=== PATIENT | female | born 1940 | race Caucasian/White ===

== ENCOUNTER 2017-05-12 17:55 | Emergency (ER) | payer MEDICARE ==
[~2017-05-12] VITALS: Ht 154.9 cm; Wt 49.9 kg
[~2017-05-12 17:55] MED LIST: ALBU2.5V14 IH; ALEN70TA5 PO; CITA10SO PO; FLEXER; FLUT16SP NS; HYDR1TAB20 PO; LEVO750T31 PO; LOSA1TAB17 PO; MESA1POW MC; POLYETHYLENE GLYCOL; POTA10TA PO; PRED20TA PO; PRO AIR; TEMA30CA PO; TIOT18CA IH; TRAM50TA PO; [UNRECOGNIZED DRUG - OTHER]; [UNRECOGNIZED DRUG - OTHER]
[2017-05-12 19:13] LABS: BASO % 1 % (0-3); EOS % 1 % (0-3); HEMATOCRIT 43.3 % (36.0-47.0); HEMOGLOBIN 14.5 g/dL (12.0-15.5); LYMPH # 0.5 x10^3/uL (1.0-4.8); LYMPH % 9 % (24-48); MEAN CORPUSCULAR HEMOGLOBIN 29 pg (25-35); MEAN CORPUSCULAR HGB CONC 34 g/dL (31-37); MEAN CORPUSCULAR VOLUME 87 fL (79-100); MONO % 3 % (0-9); NEUT % 87 % (31-73); PLATELET COUNT 277 x10^3/uL (140-400); RED CELL DISTRIBUTION WIDTH 13.4 % (11.5-14.5)
[2017-05-12 19:24] LABS: CALCIUM 9.5 mg/dL (8.5-10.1); CREATININE 0.8 mg/dL (0.6-1.0); GFR 69.6; POTASSIUM 3.8 mmol/L (3.5-5.1)
[2017-05-12 19:30] LABS: ALBUMIN 3.8 g/dL (3.4-5.0); DIRECT BILIRUBIN 0.1 mg/dL (0.0-0.2); TOTAL BILIRUBIN 0.3 mg/dL (0.2-1.0); TOTAL PROTEIN 7.1 g/dL (6.4-8.2)
[2017-05-12 19:33] VITALS: BP 158/75
[2017-05-12 19:35] LABS: BILIRUBIN,URINE NEGATIVE (NEG); GLUCOSE,URINE NEGATIVE (NEG); NITRITE,URINE NEGATIVE (NEG); PH,URINE 7.5; PROTEIN,URINE NEGATIVE (NEG-TRACE); UROBILINOGEN,URINE 0.2 mg/dL (0.2 mg/dL)
[2017-05-12 19:49] LABS: BACTERIA,URINE 0 /HPF (0-FEW)
--- NOTE | 2017-05-12 20:06 | PHYS DOC ---
Past Medical History Past Medical History: Arthritis, Cancer, COPD, Diverticulosis, GERD, Hypertension, Other Additional Past Medical Histor: Lung CA - remission, VERTIGO, DRY MOUTH Past Surgical History: Appendectomy, Cholecystectomy, Colectomy, Hysterectomy, Oophorectomy Additional Past Surgical Histo: BX OOPH. Alcohol Use: None Drug Use: None Adult General Chief Complaint Chief Complaint: HYPERTENSION HPI HPI 77-year-old female presenting to the emergency department today with a headache and high blood pressure. She describes her headache is intermittent sharp nonradiating without alleviating factors. Review of systems is negative for chest pain abdominal pain oliguria wheezing or difficulty breathing. She denies vision changes. All other review of systems is negative unless otherwise noted in history of present illness. ED course: 77-year-old female presenting today with hypertension and a mild headache. Vital signs showed mild hypertension and 170 systolic. Otherwise the patient denied any evidence of end organ damage. Blood work and EKG obtained which was unremarkable. EKG shows sinus rhythm with a regular rate. ST segments show mild repolarization. Does not meet STEMI criteria. EKG states to consider WPW. I do not believe this patient at WPW. I do not believe that lead 2 has a delta wave. Suggestive of ACS. Reviewed by myself. Otherwise the patient's workup was unremarkable and the patient was subsequently discharged home to follow-up with her primary care physician for chronic hypertension control. Review of Systems Review of Systems SEE ABOVE. Allergies Allergies Allergies Coded Allergies Type Severity Reaction Last Updated Verified tramadol Allergy Unknown 05/12/17 No codeine Adverse Reaction Intermediate Nausea 05/12/17 Yes Physical Exam Physical Exam SEE ABOVE Constitutional: Well developed, well nourished, no acute distress, non-toxic appearance. [] HENT: Normocephalic, atraumatic, bilateral external ears normal, oropharynx moist, no oral exudates, nose normal. [] Eyes: PERRLA, EOMI, conjunctiva normal, no discharge. [] Neck: Normal range of motion, no tenderness, supple, no stridor. [] Cardiovascular:Heart rate regular rhythm, no murmur [] Lungs & Thorax: Bilateral breath sounds clear to auscultation [] Abdomen: Bowel sounds normal, soft, no tenderness, no masses, no pulsatile masses. [] Skin: Warm, dry, no erythema, no rash. [] Back: No tenderness, no CVA tenderness. [] Extremities: No tenderness, no cyanosis, no clubbing, ROM intact, no edema. [] Neurologic: Alert and oriented X 3, normal motor function, normal sensory function, no focal deficits noted. [] Psychologic: Affect normal, judgement normal, mood normal. [] Current Patient Data Vital Signs Vital Signs Date Time Temp Pulse Resp B/P (MAP) Pulse Ox O2 Delivery O2 Flow Rate FiO2 05/12/17 18:05 98.0 103 20 178/82 (114) 96 Room Air 98.0 Lab Values Laboratory Tests Test 05/12/17 18:55 05/12/17 19:25 White Blood Count 5.0 x10^3/uL (4.0-11.0) Red Blood Count 5.00 x10^6/uL (3.50-5.40) Hemoglobin 14.5 g/dL (12.0-15.5) Hematocrit 43.3 % (36.0-47.0) Mean Corpuscular Volume 87 fL (79-100) Mean Corpuscular Hemoglobin 29 pg (25-35) Mean Corpuscular Hemoglobin Concent 34 g/dL (31-37) Red Cell Distribution Width 13.4 % (11.5-14.5) Platelet Count 277 x10^3/uL (140-400) Neutrophils (%) (Auto) 87 % (31-73) H Lymphocytes (%) (Auto) 9 % (24-48) L Monocytes (%) (Auto) 3 % (0-9) Eosinophils (%) (Auto) 1 % (0-3) Basophils (%) (Auto) 1 % (0-3) Neutrophils # (Auto) 4.4 x10^3uL (1.8-7.7) Lymphocytes # (Auto) 0.5 x10^3/uL (1.0-4.8) L Monocytes # (Auto) 0.1 x10^3/uL (0.0-1.1) Eosinophils # (Auto) 0.1 x10^3/uL (0.0-0.7) Basophils # (Auto) 0.0 x10^3/uL (0.0-0.2) Platelet Estimate Pending Sodium Level 141 mmol/L (136-145) Potassium Level 3.8 mmol/L (3.5-5.1) Chloride Level 102 mmol/L (98-107) Carbon Dioxide Level 30 mmol/L (21-32) Anion Gap 9 (6-14) Blood Urea Nitrogen 12 mg/dL (7-20) Creatinine 0.8 mg/dL (0.6-1.0) Estimated GFR (Cockcroft-Gault) 69.6 Glucose Level 108 mg/dL (70-99) H Calcium Level 9.5 mg/dL (8.5-10.1) Total Bilirubin 0.3 mg/dL (0.2-1.0) Direct Bilirubin 0.1 mg/dL (0.0-0.2) Aspartate Amino Transferase (AST) 17 U/L (15-37) Alanine Aminotransferase (ALT) 20 U/L (14-59) Alkaline Phosphatase 66 U/L (46-116) Troponin I Quantitative < 0.017 ng/mL (0.000-0.055) KA-Rvt-D-Type Natriuretic Peptide 1476 pg/mL (0-449) H Total Protein 7.1 g/dL (6.4-8.2) Albumin 3.8 g/dL (3.4-5.0) Lipase 182 U/L (73-393) Urine Collection Type Unknown Urine Color Yellow Urine Clarity Clear Urine pH 7.5 Urine Specific [place] <=1.005 Urine Protein Negative mg/dL (NEG-TRACE) Urine Glucose (UA) Negative mg/dL (NEG) Urine Ketones (Stick) Negative mg/dL (NEG) Urine Blood Negative (NEG) Urine Nitrite Negative (NEG) Urine Bilirubin Negative (NEG) Urine Urobilinogen Dipstick 0.2 mg/dL (0.2 mg/dL) Urine Leukocyte Esterase Small (NEG) Urine RBC 3-5 /HPF (0-2) Urine WBC 5-10 /HPF (0-4) Urine Transitional Epithelial Cells Few /LPF Urine Bacteria 0 /HPF (0-FEW) Laboratory Tests 05/12/17 18:55 Laboratory Tests 05/12/17 18:55 EKG EKG [] Radiology/Procedures Radiology/Procedures [] Course & Med Decision Making Course & Med Decision Making Pertinent Labs and Imaging studies reviewed. (See chart for details) [] Dragon Disclaimer Dragon Disclaimer This electronic medical record was generated, in whole or in part, using a voice recognition dictation system. Departure Departure Impression: Primary Impression: Hypertension Disposition: HOME, SELF-CARE Condition: STABLE Referrals: GENNA العلي MD (PCP) Patient Instructions: Hypertension Additional Instructions: Thank you for allowing us to participate in your care today. Followup with your primary care physician in 3 days if your symptoms do not improve. Call your Primary Doctor tomorrow and inform them of your visit today. If you do not have a primary care provider you can ask for a list of our primary care providers. Return to the emergency department you have any new or concerning findings. This should be evaluated by the primary care physician and any necessary consulting services for continued management within a few days after discharge. Return to emergency room if you have any new or concerning symptoms including but not limited to fever, chills, nausea, vomiting, intractable pain, any new rashes, chest pain, shortness of air, uncontrolled bleeding, difficulty breathing, and/or vision loss. IKE BRADLEY MD May 12, 2017 20:06
[2017-05-12 20:08] LABS: PLT ESTIMATE ADEQUATE (ADEQUATE)
--- NOTE | 2017-05-12 20:09 | EKG ---
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
== END 2017-05-12 20:15 | disposition home or self-care (01) ==
LOC: ER 17:55
DX: I10 Essential (primary) hypertension (principal); M19.90 Unspecified osteoarthritis, unspecified site; J44.9 Chronic obstructive pulmonary disease, unspecified; K21.9 Gastro-esophageal reflux disease without esophagitis; Z90.49 Acquired absence of other specified parts of digestive tract; Z90.710 Acquired absence of both cervix and uterus; Z88.5 Allergy status to narcotic agent; Z90.721 Acquired absence of ovaries, unilateral
CPT/HCPCS: 36415; 80048; 80076; 81001; 83605; 83690; 83880; 84484; 85007; 85027; 87086; 93005; 99285-25

== ENCOUNTER 2018-12-07 00:30 | Inpatient (IN) | payer MEDICARE ==
[2018-12-07] VITALS (13 sets, daily range): BP systolic 113–135; BP diastolic 51–59
[~2018-12-07] VITALS: Ht 154.9 cm; Wt 52.2 kg
[~2018-12-07 00:30] MED LIST changes: -ALEN70TA5 PO; +ALEN70TA6 PO; -LOSA1TAB17 PO; +LOSA1TAB22 PO
--- NOTE | 2018-12-07 00:44 | PHYS DOC ---
Past Medical History Past Medical History: Arthritis, Cancer, COPD, Diverticulosis, GERD, Hypertension, Other Additional Past Medical Histor: Lung CA - remission, VERTIGO, DRY MOUTH Past Surgical History: Appendectomy, Cholecystectomy, Colectomy, Hysterectomy, Oophorectomy Additional Past Surgical Histo: BX OOPH. Alcohol Use: None Drug Use: None Adult General Chief Complaint Chief Complaint: MECHANICAL FALL HPI HPI Patient is a 78-year-old female who arrives via EMS with report of injury to her left shoulder and left hip after falling at home. Patient reportedly had tripped over a trunk when the lights were turned out and she fell onto her left side. She rates her pain at a 9 out of 10 stating that the worst of the pain is in her left hip. EMS reports she was able to get herself up onto a chair at was not able to bear weight on that left hip. Patient reports pain is worsened in the hip with any motion. She denies any head injury, neck pain and back pain and had no loss of consciousness. Review of Systems Review of Systems Constitutional: Denies fever or chills [] Eyes: Denies change in visual acuity, redness, or eye pain [] Respiratory: Denies cough or shortness of breath [] Cardiovascular: No additional information not addressed in HPI [] GI: Denies abdominal pain, nausea, vomiting or diarrhea [] Musculoskeletal: Complains of left shoulder and hip pain [] Neurologic: Denies headache, focal weakness or sensory changes [] All other systems were reviewed and found to be within normal limits, except as documented in this note. Current Medications Current Medications Current Medications Medications (Trade) Dose Ordered [facility] Start Time Stop Time Status Last Admin Dose Admin Fentanyl Citrate (Fentanyl 2ml Vial) 25 mcg PRN Q15MIN PRN 12/07/18 00:45 12/08/18 00:44 12/07/18 01:05 25 MCG Hydromorphone HCl (Dilaudid) 0.5 mg 1X ONCE 12/07/18 02:45 12/07/18 02:47 DC 12/07/18 02:50 0.5 MG Sodium Chloride 1,000 ml @ 100 mls/hr Q10H 12/07/18 00:45 12/07/18 10:44 12/07/18 01:06 100 MLS/HR Allergies Allergies Allergies Coded Allergies Type Severity Reaction Last Updated Verified tramadol Allergy Unknown 05/12/17 No codeine Adverse Reaction Intermediate Nausea 05/12/17 Yes Physical Exam Physical Exam Constitutional: Well developed, well nourished, no acute distress, non-toxic appearance. [] HENT: Normocephalic, atraumatic, bilateral external ears normal, oropharynx moist, no oral exudates, nose normal. [] Eyes: PERRLA, EOMI, conjunctiva normal, no discharge. [] Neck: Normal range of motion, no tenderness, supple, no stridor. [] Cardiovascular: Regular rate and rhythm[] Lungs & Thorax: Bilateral breath sounds clear to auscultation [] Abdomen: Bowel sounds normal, soft, no tenderness. [] Skin: Warm, dry, no erythema, no rash. [] Extremities: Examination of left hip demonstrates no shortening or external rotation. Patient does report significant pain with minimal external rotation of hip. Examination of left shoulder demonstrates no obvious deformity. Patient does report to increase pain in the shoulder with flexion and with abduction. [ ] Neurologic: Alert and oriented X 3, no focal deficits noted. [] Current Patient Data Vital Signs Vital Signs Date Time Temp Pulse Resp B/P (MAP) Pulse Ox O2 Delivery O2 Flow Rate FiO2 12/07/18 02:50 18 93 Room Air 12/07/18 01:26 102 12/07/18 00:30 97.7 145/69 (94) 97.7 Lab Values Laboratory Tests Test 12/07/18 00:58 12/07/18 01:43 White Blood Count 5.4 x10^3/uL (4.0-11.0) Red Blood Count 4.58 x10^6/uL (3.50-5.40) Hemoglobin 13.5 g/dL (12.0-15.5) Hematocrit 40.8 % (36.0-47.0) Mean Corpuscular Volume 89 fL (79-100) Mean Corpuscular Hemoglobin 30 pg (25-35) Mean Corpuscular Hemoglobin Concent 33 g/dL (31-37) Red Cell Distribution Width 13.5 % (11.5-14.5) Platelet Count 295 x10^3/uL (140-400) Neutrophils (%) (Auto) 72 % (31-73) Lymphocytes (%) (Auto) 16 % (24-48) L Monocytes (%) (Auto) 10 % (0-9) H Eosinophils (%) (Auto) 2 % (0-3) Basophils (%) (Auto) 1 % (0-3) Neutrophils # (Auto) 3.9 x10^3uL (1.8-7.7) Lymphocytes # (Auto) 0.8 x10^3/uL (1.0-4.8) L Monocytes # (Auto) 0.5 x10^3/uL (0.0-1.1) Eosinophils # (Auto) 0.1 x10^3/uL (0.0-0.7) Basophils # (Auto) 0.0 x10^3/uL (0.0-0.2) Prothrombin Time 11.9 SEC (11.7-14.0) Prothrombin Time INR 0.9 (0.8-1.1) Sodium Level 142 mmol/L (136-145) Potassium Level 3.5 mmol/L (3.5-5.1) Chloride Level 103 mmol/L (98-107) Carbon Dioxide Level 29 mmol/L (21-32) Anion Gap 10 (6-14) Blood Urea Nitrogen 23 mg/dL (7-20) H Creatinine 0.7 mg/dL (0.6-1.0) Estimated GFR (Cockcroft-Gault) 80.9 BUN/Creatinine Ratio 33 (6-20) H Glucose Level 104 mg/dL (70-99) H Calcium Level 9.5 mg/dL (8.5-10.1) Total Bilirubin 0.2 mg/dL (0.2-1.0) Aspartate Amino Transferase (AST) 19 U/L (15-37) Alanine Aminotransferase (ALT) 23 U/L (14-59) Alkaline Phosphatase 69 U/L (46-116) Total Protein 6.6 g/dL (6.4-8.2) Albumin 3.4 g/dL (3.4-5.0) Albumin/Globulin Ratio 1.1 (1.0-1.7) Urine Collection Type U cath Urine Color Yellow Urine Clarity Clear Urine pH 5.5 Urine Specific [place] 1.025 Urine Protein Negative mg/dL (NEG-TRACE) Urine Glucose (UA) Negative mg/dL (NEG) Urine Ketones (Stick) Negative mg/dL (NEG) Urine Blood Negative (NEG) Urine Nitrite Negative (NEG) Urine Bilirubin Negative (NEG) Urine Urobilinogen Dipstick 0.2 mg/dL (0.2 mg/dL) Urine Leukocyte Esterase Negative (NEG) Urine RBC 1-2 /HPF (0-2) Urine WBC Occ /HPF (0-4) Urine Squamous Epithelial Cells Occ /LPF Urine Bacteria 0 /HPF (0-FEW) Urine Hyaline Casts Few /HPF Urine Mucus Mod /LPF Laboratory Tests 12/07/18 00:58 Laboratory Tests 12/07/18 00:58 EKG EKG [] Radiology/Procedures Radiology/Procedures [] Impressions: PROCEDURE: CT PELVIS WO CONTRAST EXAM: CT pelvis with IV contrast DATE: 12/07/2018 2:24 AM COMPARISON: No prior INDICATION: eval for left hip fx left hip pain TECHNIQUE: CT of the pelvis was performed without IV contrast. Axial coronal and sagittal reformatted images were generated. PQRS compliance statement - One or more of the following individualized dose reduction techniques were utilized for this study: 1. Automated exposure control 2. Adjustment of the mA and/or kV according to patient size 3. Use of iterative reconstruction technique FINDINGS: There is an acute, complete subcapital left femoral neck fracture, mildly impacted. No significant displacement. Diffusely decreased bone mineral density. Lower lumbar spine degenerative changes are seen. Symphysis pubis degenerative changes are seen. Atherosclerotic vascular calcifications are seen. Large volume colonic stool content is seen. Suture line is seen within the distal sigmoid/rectum. Diffuse subcutaneous soft tissue swelling is seen overlying the dorsal/lateral aspect of the left hip, likely subcutaneous hematoma. IMPRESSION: 1. Acute, subcapital left femoral neck fracture, mildly impacted, without significant displacement. 2. Diffusely decreased bone mineral density. 3. Subcutaneous soft tissue swelling overlying the dorsal/lateral aspect of the left hip, likely soft tissue hematoma. Electronically signed by: Marcial Fuentes MD (12/07/2018 3:35 AM) [facility] Course & Med Decision Making Course & Med Decision Making Pertinent Labs and Imaging studies reviewed. (See chart for details) [] Dragon Disclaimer Dragon Disclaimer This electronic medical record was generated, in whole or in part, using a voice recognition dictation system. Departure Departure Impression: Primary Impression: Subcapital fracture of left femur Disposition: 09 ADMITTED INPATIENT Admitting Physician: Sanchez Kolb Condition: IMPROVED Referrals: SANCHEZ KOLB MD (PCP) Problem Qualifiers Primary Impression: Subcapital fracture of left femur Encounter type: initial encounter Fracture type: closed Qualified Codes: S72.012A - Unspecified intracapsular fracture of left femur, initial encounter for closed fracture SIMON CALDERON Jr. DO Dec 07, 2018 00:44
[2018-12-07] MEDS ORDERED: IV NORMAL SALINE 1000ML BAG 1,000 ML IV SCH (00:45)
[2018-12-07] MEDS ORDERED: fentaNYL PF VIAL 100 MCG/2 ML VIAL IV PRN ×3 (00:45→09:30)
[2018-12-07 01:19] LABS: BASO % 1 % (0-3); EOS # 0.1 x10^3/uL (0.0-0.7); EOS % 2 % (0-3); HEMATOCRIT 40.8 % (36.0-47.0); HEMOGLOBIN 13.5 g/dL (12.0-15.5); LYMPH # 0.8 x10^3/uL (1.0-4.8); LYMPH % 16 % (24-48); MEAN CORPUSCULAR HEMOGLOBIN 30 pg (25-35); MEAN CORPUSCULAR HGB CONC 33 g/dL (31-37); MEAN CORPUSCULAR VOLUME 89 fL (79-100); MONO # 0.5 x10^3/uL (0.0-1.1); MONO % 10 % (0-9); NEUT # 3.9 x10^3uL (1.8-7.7); NEUT % 72 % (31-73); PLATELET COUNT 295 x10^3/uL (140-400); RED BLOOD COUNT 4.58 x10^6/uL (3.50-5.40); RED CELL DISTRIBUTION WIDTH 13.5 % (11.5-14.5); WHITE BLOOD COUNT 5.4 x10^3/uL (4.0-11.0)
[2018-12-07 01:23] LABS: CALCIUM 9.5 mg/dL (8.5-10.1); CREATININE 0.7 mg/dL (0.6-1.0); GFR 80.9; POTASSIUM 3.5 mmol/L (3.5-5.1)
[2018-12-07 01:26] LABS: PROTHROMBIN TIME PATIENT 11.9 SEC (11.7-14.0)
[2018-12-07 01:29] LABS: ALBUMIN 3.4 g/dL (3.4-5.0); ALBUMIN/GLOBULIN RATIO 1.1 (1.0-1.7); TOTAL BILIRUBIN 0.2 mg/dL (0.2-1.0); TOTAL PROTEIN 6.6 g/dL (6.4-8.2)
[2018-12-07 01:52] LABS: BILIRUBIN,URINE NEGATIVE (NEG); CLARITY,URINE CLEAR; COLOR,URINE YELLOW; NITRITE,URINE NEGATIVE (NEG); PH,URINE 5.5; PROTEIN,URINE NEGATIVE (NEG-TRACE); UROBILINOGEN,URINE 0.2 mg/dL (0.2 mg/dL)
--- NOTE | 2018-12-07 01:56 | RAD ---
EXAM: AP pelvis, AP and frog-leg lateral views of the left hip DATE: 12/07/2018 1:12 AM INDICATION: pt fell; hip pain COMPARISON: No Prior FINDINGS/ IMPRESSION: 1. There is mild cortical offset at the left femoral head/neck junction suspicious for subcapital left femoral neck fracture. However evaluation is limited given diffuse osteopenia and can be confirmed by cross-sectional imaging CT/MRI. 2. Lower lumbar spine and SI joint degenerative changes are seen. Electronically signed by: Marcial Fuentes MD (12/07/2018 1:53 AM) [facility]
[2018-12-07 01:59] LABS: BACTERIA,URINE 0 /HPF (0-FEW); HYALINE CASTS, URINE FEW /HPF; SQUAMOUS EPITHELIAL CELL,UR OCC /LPF; WBC,URINE OCC /HPF (0-4)
[2018-12-07] MEDS ORDERED: HYDROmorphone 2 MG/ML VIAL IV ONE (02:45)
--- NOTE | 2018-12-07 03:38 | RAD ---
EXAM: CT pelvis with IV contrast DATE: 12/07/2018 2:24 AM COMPARISON: No prior INDICATION: eval for left hip fx left hip pain TECHNIQUE: CT of the pelvis was performed without IV contrast. Axial coronal and sagittal reformatted images were generated. PQRS compliance statement - One or more of the following individualized dose reduction techniques were utilized for this study: 1. Automated exposure control 2. Adjustment of the mA and/or kV according to patient size 3. Use of iterative reconstruction technique FINDINGS: There is an acute, complete subcapital left femoral neck fracture, mildly impacted. No significant displacement. Diffusely decreased bone mineral density. Lower lumbar spine degenerative changes are seen. Symphysis pubis degenerative changes are seen. Atherosclerotic vascular calcifications are seen. Large volume colonic stool content is seen. Suture line is seen within the distal sigmoid/rectum. Diffuse subcutaneous soft tissue swelling is seen overlying the dorsal/lateral aspect of the left hip, likely subcutaneous hematoma. IMPRESSION: 1. Acute, subcapital left femoral neck fracture, mildly impacted, without significant displacement. 2. Diffusely decreased bone mineral density. 3. Subcutaneous soft tissue swelling overlying the dorsal/lateral aspect of the left hip, likely soft tissue hematoma. Electronically signed by: Marcial Fuentes MD (12/07/2018 3:35 AM) [facility]
[2018-12-07] MEDS ORDERED: ONDANSETRON PF 4 MG/2 ML VIAL. IV PRN ×3 (04:00→19:00)
[2018-12-07] MEDS: fentaNYL PF VIAL 100 MCG/2 ML VIAL IV PRN ×6 (04:41→17:18)
--- NOTE | 2018-12-07 05:15 | NUR ---
ADMIT Pt arrived via [facility] accompanied by grand-daughter Mary. Patient moved from [facility] to bed via slide transfer by [facility] staff. Pt A/Ox4, NC 2L O2, VSS. Full admission assessment completed at this time. Pt c/o of most pain in left hip, 04/19. Patient grasping Left shoulder and facial grimacing. Ice pack applied to Left hip. IVF initiated at this time. Purewick suction set up at this time. MRSA swab completed. SCD applied to right lower leg. Granddgtr at bedside. Advised RN will call Lawanda and then will determine surgery. Advised NPO, call contract signed. Allergy arm band applied. Fall precautions initiated. Alarm activated, will continue to monitor closely .
[2018-12-07] MEDS: IV NORMAL SALINE 1000ML BAG 1,000 ML IV SCH ×3 (06:01→21:42)
--- NOTE | 2018-12-07 07:28 | NUR ---
Routine consult called to Dr. Webber's office regarding Left Femoral Neck Fracture and Left Shoulder pain.
--- NOTE | 2018-12-07 08:08 | RAD ---
PORTABLE CHEST 1V History: chest pain after fall Comparison: September 13, 2016 Findings: AP view of the chest is submitted. There is atherosclerotic calcification thoracic aorta. There is old right posterior seventh rib fracture. There is no infiltrate, pleural fluid, pneumothorax. Heart size is stable. Impression: 1. No acute radiographic abnormality is identified. Electronically signed by: Julian Graham MD (12/07/2018 8:05 AM) [facility]
--- NOTE | 2018-12-07 08:15 | RAD ---
SHOULDER 2+V LEFT History: shoulder pain after fall Comparison: None. Findings: 3 views of the left shoulder are submitted. No acute fracture or dislocation is identified by radiographs. Impression: 1. No acute osseous abnormality is identified by radiographs. Electronically signed by: Julian Graham MD (12/07/2018 8:13 AM) [facility]
--- NOTE | 2018-12-07 08:56 | PDOC ---
Provider Note Provider Note [id number] GENNA العلي MD Dec 07, 2018 08:56
[2018-12-07] MEDS: LOSARTAN POTASSIUM 50 MG TABLET. PO SCH (09:00)
[2018-12-07] MEDS: MESALAMINE MC SCH ×3 (09:00→21:00)
[2018-12-07] MEDS ORDERED: hydroCHLOROthiazide 25 MG TABLET PO SCH (09:00)
[2018-12-07] MEDS: POLYETHYLENE GLYCOL 3350 17 GM PACKET. PO SCH (09:00)
[2018-12-07] MEDS ORDERED: IV RINGERS,LACTATED 1000ML 1,000 ML IV SCH (09:29)
[2018-12-07] MEDS ORDERED: PROCHLORPERAZINE 10 MG/2 ML VIAL. IV PRN (09:30)
[2018-12-07] MEDS ORDERED: LIDOCAINE 1% PF 2 ML VIAL. ID PRN (09:30)
--- NOTE | 2018-12-07 09:34 | HP ---
ADMIT DATE: 12/07/2018 CHIEF COMPLAINT: Fall. HISTORY OF PRESENT ILLNESS: A 78-year-old white female with mild hypertension, COPD, and osteoporosis. Had a fall and suffered a femoral neck fracture. The orthopedist has seen her and plans to do surgery later today and there have been no recent medical problems. MEDICATIONS: Noted per the chart. ALLERGIES: SHE HAS ALLERGIES TO CODEINE AND TRAMADOL. No prior significant orthopedic problems. SOCIAL HISTORY: Nonsmoker for many years, , nondrinker. FAMILY HISTORY: Unremarkable. REVIEW OF SYSTEMS: No other recent problems. OBJECTIVE: ENT: All within normal limits. NECK: No masses, nodes or bruits. LUNGS: Clear, without tachypnea. CARDIOVASCULAR: Regular rate. No irregular beat or murmur. ABDOMEN: Soft, benign and nontender. EXTREMITIES: The left leg is shortened and externally rotated consistent with a fracture. Distal pulses are reasonably good, radial pulses good 2+ clubbing is noted. NEUROLOGIC: Physiologic. ASSESSMENT: Hip fracture, chronic obstructive pulmonary disease, hypertension, and osteoporosis. The patient is medically stable for surgery. GENNA العلي MD DR: KURT/corrina JOB#: [id number] / [id number]
[2018-12-07] MEDS: IPRATRPIUM/ALBUTEROL 0.5/2.5MG 3 ML NEBU. NEB SCH ×3 (10:47→20:45)
--- NOTE | 2018-12-07 11:14 | NUR ---
SW following, discussed with RN. Pt is from home with granddaughter, and is having surgery today. RN advised no SW needs at this time. SW will continue to follow.
--- NOTE | 2018-12-07 11:31 | EKG ---
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
[2018-12-07] MEDS ORDERED: fentaNYL PF VIAL 100 MCG/2 ML VIAL ONE (15:09)
[2018-12-07] MEDS ORDERED: ONDANSETRON PF 4 MG/2 ML VIAL. ONE (15:13)
[2018-12-07] MEDS ORDERED: DEXAMETHASONE SOD PHOS 20 MG/5 ML VIAL. ONE (15:13)
[2018-12-07] MEDS ORDERED: LIDOCAINE 2% PF 5 ML VIAL. ONE (15:13)
[2018-12-07] MEDS ORDERED: PROPOFOL 20 ML IV ONE (15:13)
[2018-12-07] MEDS ORDERED: WARFARIN 7.5 MG TABLET. PO ONE (16:00)
[2018-12-07] MEDS ORDERED: ESMOLOL 100 MG/10 ML VIAL. IVP ONE (18:16)
[2018-12-07] MEDS ORDERED: DEXTROSE 50% 25 GM / 50ML DISP.SYRIN. IV PRN (19:00)
[2018-12-07] MEDS ORDERED: POLYETHYLENE GLYCOL 3350 17 GM PACKET. PO PRN (19:00)
--- NOTE | 2018-12-07 19:06 | PDOC4 ---
Operative Note Operative Note Date of surgery: 12/07/2018 Preoperative diagnosis: Impacted left femoral neck fracture Postoperative diagnosis: Same Operative procedure: Closed reduction percutaneous screw placement 3 left femoral neck Surgeon: Lawanda Anesthesia: Gen. Estimated blood loss: 25 mL Complications: None Operative indications: Magda is a 78-year-old female that fell sustaining the above impacted femoral neck fracture as well as a left shoulder injury I had gone over with her risks benefits postoperative course of the recommended stabilization procedure with screws to avoid the possibility of displacement with otherwise weightbearing or immobility related complications. I told her that there is a possibility of nonhealing due to interruption of the blood supply however with this orientation of fracture in general the healing rate is about 90%. Therefore recommended the possibility of proceeding with fixation as opposed to a hemiarthroplasty. All her questions were answered she wishes to proceed with surgical evaluation and treatment and is aware of the possibility of nonhealing medical or other anesthetic complications among others Operative text: Patient was identified procedure verified patient placed in the supine position on the [place] fracture table after adequate amounts of general anesthesia were administered. Left lower extremity was placed in traction boot right leg placed in the well leg guillen and all bony prominences were well- padded. Reduction was confirmed under multiple fluoroscopic guidance and the left hip was prepped and draped in standard sterile fashion. After timeout was performed patient procedure identified and verified and incision was made over the lateral aspect of the femur localized under fluoroscopic guidance and a total of 3 guidewires were placed parallel under fluoroscopic guidance noted to be in the femoral head. Sizing of the short threaded 8.0 Edin cannulated screws was then carried out and screws were placed with excellent fixation in the femoral head and were verified and placement to avoid any penetration under multiple fluoroscopic views. Guidewires were then removed thorough irrigation carried out normal saline solution fascia closed with #1 Vicryl suture subcutaneous closure with buried Vicryl suture skin closure with chepe sterile dressings were applied patient was returned recovery room in stable condition having tolerated procedure well SHABANA SWEENEY MD Dec 07, 2018 19:06
[2018-12-07] MEDS: BENZOCAINE/MENTHOL LOZENGE. PO PRN (19:45)
--- NOTE | 2018-12-07 20:08 | NUR ---
Patient arrived to floor via bed from PACU. Vitals stable, in eMar. NC 5 L this nurse turned patient down to 4 L NC Family in room Patient A/O x4 Fluids running. Patient does not complain of any pain. Neuro and Vascular checks ordered. Patient given ice chips and water. 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 This nurse will continue to monitor.
[2018-12-07] MEDS: TEMAZEPAM 15 MG CAPSULE PO SCH (21:42)
[2018-12-08] VITALS (7 sets, daily range): BP systolic 97–126; BP diastolic 48–60
[2018-12-08] MEDS: ceFAZolin SODIUM 1 GM in IV DEXTROSE 5% 50 ML IV SCH ×3 (00:49→12:33)
[2018-12-08] MEDS: fentaNYL PF VIAL 100 MCG/2 ML VIAL IV PRN ×2 (01:00→20:53)
--- NOTE | 2018-12-08 03:23 | CONS ---
DATE OF CONSULTATION: 12/07/2018 TYPE OF REPORT: Orthopedic consultation. CHIEF COMPLAINT: Fall with left hip pain. HISTORY OF PRESENT ILLNESS: The patient is a 78-year-old female who had a fall early this morning had the inability to bear weight on her left hip, presented to [facility] where she was admitted with an impacted femoral neck fracture. PAST MEDICAL HISTORY: Significant for well-controlled hypertension, COPD and history of osteoporosis. PAST SURGICAL HISTORY: No major surgical history. ALLERGIES: She has allergies to CODEINE and TRAMADOL. MEDICATIONS: List is reviewed. SOCIAL HISTORY: Quit smoking many years ago. Denies alcohol or drug use. She is , otherwise, independent and ambulatory. FAMILY HISTORY: She denies any significant family history. REVIEW OF SYSTEMS: Denies any fever, chills, chest pain, shortness of breath, radiating pain, numbness, tingling or other problems. PHYSICAL EXAMINATION: HEENT: Atraumatic and normocephalic. EXTREMITIES: Examination of the upper extremities reveals weakness with left shoulder attempted abduction or elevation. There is no instability. She has normal elbow and wrist motion bilaterally. Normal examination of the contralateral shoulder. Normal parascapular motion but definitely is weak in all planes and resisted rotator cuff testing on the left. Examination of the left hip reveals no leg length discrepancy but does have tenderness on palpation or motion of the left hip compared to the right. Normal alignment and stability of bilateral knees and ankles. Intact motor function, distal pulses, sensation, reflexes, skin in both upper and lower extremities throughout. RADIOLOGICAL DATA: X-rays of the left hip appeared to show some irregularity in the femoral neck. A CT scan showed an impacted femoral neck fracture with essentially no displacement. Hip joint is well maintained. X-rays of left shoulder show no evidence of fracture or bony abnormality. Glenohumeral joint is well preserved. IMPRESSION: 1. Impacted left femoral neck fracture. 2. Left shoulder pain and weakness, status post fall. TREATMENT PLAN: I went over with her the concern for blood supply and possible displacement of the left hip and the need to undergo fixation of the hip fracture, she is to be up and around to avoid the risk of displacement. We talked about the possibility of decreased activity or limiting her ambulation and weightbearing; however, her shoulder is somewhat limiting and she would likely be down in bed or suffering immobility related issues. She wishes to proceed with surgical evaluation and treatment with a closed reduction percutaneous screw placement x 3 on the left hip, which will occur today pending operating room availability. I am also planned to get an MRI of her left shoulder to further evaluate possibility of weakness in rotator cuff injury. SHABANA SWEENEY MD DR: YULISSA/corrina JOB#: [id number] / [id number]
[2018-12-08 04:33] LABS: HEMATOCRIT 32.8 % (36.0-47.0); HEMOGLOBIN 10.7 g/dL (12.0-15.5)
[2018-12-08] MEDS: oxyCODONE IR 5 MG TABLET PO PRN ×2 (05:52→09:28)
[2018-12-08] MEDS ORDERED: MAGNESIUM HYDROXIDE 2,400 MG/30 ML ORAL.SUSP. PO PRN (06:00)
[2018-12-08] MEDS: IPRATRPIUM/ALBUTEROL 0.5/2.5MG 3 ML NEBU. NEB SCH ×4 (07:02→20:06)
[2018-12-08] MEDS ORDERED: SALIVA STIMULANT AGENT 44ML SPRAY BOTTLE. PO PRN (08:30)
[2018-12-08] MEDS ORDERED: PHENOL ORAL SPRAY 177ML BOTTLE. PO PRN (08:30)
--- NOTE | 2018-12-08 08:46 | PDOC ---
Provider Note Provider Note vss, alert- still L shoulder pain, likely soft tissue injury- labs ok- mr shoulder next, likely will need rehab re L hip/shoulder and general weakness/ copd GENNA العلي MD Dec 08, 2018 08:46
[2018-12-08] MEDS: MESALAMINE MC SCH ×3 (09:00→21:00)
[2018-12-08] MEDS: SENNOSIDES/DOCUSATE 8.6/50MG TABLET. PO SCH (09:27)
[2018-12-08] MEDS: POLYETHYLENE GLYCOL 3350 17 GM PACKET. PO SCH (09:28)
[2018-12-08] MEDS: LOSARTAN POTASSIUM 50 MG TABLET. PO SCH (09:32)
--- NOTE | 2018-12-08 10:39 | NUR ---
SW following for discharge planning. Discussed with RN, RN advised pt may need SNU. Pt lives at home with daughter. SW will continue to follow for discharge recommendations.
--- NOTE | 2018-12-08 11:08 | NUR ---
Pharmacy Warfarin Dosing Note S:Pharmacy consulted to assist with anticoagulation therapy started 12/07/18 with target INR: 1.6 - 2.5 O:EMILEE RUIZ is a 78 year old F with ORIF Hip Fracture LABS: Last INR: 0.9 12/07 Last HGB: 10.7 Last HCT: 32.8 Last PLT: 295 Last dose of 7.5 mg given on 12/07/18 at 2143 Previous Regimen: Vitamin K given: Drug Interaction Changes: Ongoing Drug Interactions: A:INR of 0.9 12/07 is below desired range. Target range for this patient is: 1.6 - 2.5 P: Warfarin dose: 3 mg Today at 1600 Bridge Therapy: None Next INR due tomorrow. Pharmacy anticoagulation service will continue to follow. TOI WILLIAM [facility], 12/08/18 8230
[2018-12-08] MEDS: BENZOCAINE/MENTHOL LOZENGE. PO PRN (12:33)
--- NOTE | 2018-12-08 12:33 | RAD ---
Examination: MRI of the left shoulder without contrast HISTORY: History of left shoulder pain status post fall COMPARISON: None available TECHNIQUE: Multiplanar, multisequence MR imaging of the left shoulder were performed without contrast. FINDINGS: The long head of biceps tendon is within the bicipital groove. The attachment of the long head the biceps tendon to the superior labral anchor grossly appears intact. There is mild increased signal identified in the subscapularis tendon likely tendinosis. There is moderate increased signal identified in the supraspinatus, infraspinatus tendon likely due to tendinosis. Increased signal identified in the superior labrum extending anteriorly and posteriorly likely a SLAP tear with diffuse attenuation noted throughout the labrum likely secondary to degeneration. There is a curvilinear low T1, high T2 signal identified in the greater tuberosity likely nondisplaced fracture. There is moderate increased T2 signal identified in the soft tissue about the greater tuberosity likely edema secondary to soft tissue injury. The muscle bulk grossly appears unremarkable. Mild degenerative changes acromioclavicular joint. Acromion is type II. Examination limited due to significant motion artifact. Moderate degenerative changes including joint. IMPRESSION: 1. Nondisplaced fracture of the greater tuberosity of the humerus with surrounding moderate edema. 2. Rotator cuff tendinosis particularly of the supraspinatus tendon. 3. Mild increased signal identified in the superior labrum extending anterior and posterior posteriorly likely a SLAP tear. 4. Examination is very limited due to significant motion artifact. Electronically signed by: Collin Arana MD (12/08/2018 12:30 PM) [facility]
[2018-12-08] MEDS ORDERED: WARFARIN 3 MG TABLET. PO ONE (16:00)
[2018-12-08] MEDS ORDERED: BISACODYL 10 MG SUPP.RECT. PR PRN (16:00)
[2018-12-08] MEDS ORDERED: RANI150T2 PO (17:35)
[2018-12-08] MEDS ORDERED: POLY17PO29 PO (17:35)
[2018-12-08] MEDS ORDERED: DICY10CA3 PO (17:35)
[2018-12-08] MEDS ORDERED: MULT1TAB52 PO (17:35)
[2018-12-08] MEDS ORDERED: CALC-98 PO (17:35)
[2018-12-08] MEDS ORDERED: PANT20TA2 PO (17:35)
[2018-12-08] MEDS ORDERED: CYCL10TA2 PO (17:35)
[2018-12-08] MEDS ORDERED: DILT180C2 PO (17:35)
[2018-12-08] MEDS ORDERED: NON FORMULARY ITEM (Ranitidine Hcl 1 TAB) PO SCH (21:00)
[2018-12-08] MEDS ORDERED: DICYCLOMINE HCL 10 MG CAPSULE PO SCH (21:00)
[2018-12-08] MEDS ORDERED: CYCLOBENZAPRINE 10 MG TABLET. PO SCH (21:00)
[2018-12-08] MEDS: TEMAZEPAM 15 MG CAPSULE PO SCH (21:32)
[2018-12-09 03:00] VITALS: BP 129/57
--- NOTE | 2018-12-09 03:45 | NUR ---
Patient was at 78% oxygen saturation on 2L NC for 0300 vitals. RN titrated the patient up to 3L NC and patient remained in the high 70's and encouraged patient to perform the IS exercises, but patient was unable to do so. RN placed NC in patients mouth due to breathing through her mouth rather than her nose and O2 saturation came up to 92%. RN will continue to monitor closely.
[2018-12-09] MEDS: oxyCODONE IR 5 MG TABLET PO PRN ×2 (06:20→11:17)
[2018-12-09] MEDS: PANTOPRAZOLE 40 MG TABLET.DR. PO SCH (06:34)
[2018-12-09 07:00] VITALS: BP 115/48
[2018-12-09] MEDS: IPRATRPIUM/ALBUTEROL 0.5/2.5MG 3 ML NEBU. NEB SCH ×4 (07:24→20:28)
--- NOTE | 2018-12-09 08:01 | PDOC ---
Provider Note Provider Note vss, bp ok- inr .9- no new sxs- mr shoes humeral fx proximal so will need sling , rehab re awkward ambulation- dry mouth so dc GENNA Ramirez MD Dec 09, 2018 08:01
[2018-12-09] MEDS: LOSARTAN POTASSIUM 50 MG TABLET. PO SCH ×2 (09:00→11:35)
[2018-12-09] MEDS ORDERED: NON FORMULARY ITEM (Polyethylene Glycol 3350 (Miralax) 1 PACKET) PO SCH (09:00)
[2018-12-09] MEDS: MESALAMINE MC SCH (09:00)
[2018-12-09 11:00] VITALS: BP 142/67
[2018-12-09] MEDS: CALCIUM CARB/VIT D3 500/200 TABLET. PO SCH (11:13)
[2018-12-09] MEDS: SENNOSIDES/DOCUSATE 8.6/50MG TABLET. PO SCH (11:19)
[2018-12-09] MEDS: MULTIVITAMIN with MINERAL TABLET. PO SCH (11:21)
[2018-12-09] MEDS: POTASSIUM CHLORIDE 20 MEQ TABLET.ER. PO SCH ×2 (11:34→17:28)
[2018-12-09] MEDS: POLYETHYLENE GLYCOL 3350 17 GM PACKET. PO SCH (11:36)
[2018-12-09] MEDS: FLUTICASONE 50MCG/NASAL SPRAY 16GM BOTTLE. NS SCH (11:51)
[2018-12-09] MEDS: fentaNYL PF VIAL 100 MCG/2 ML VIAL IV PRN (12:05)
[2018-12-09 12:53] LABS: PROTHROMBIN TIME PATIENT 15.5 SEC (11.7-14.0)
--- NOTE | 2018-12-09 13:35 | NUR ---
Pharmacy Warfarin Dosing Note S: Pharmacy consulted to assist with anticoagulation therapy started 12/07/18 O: EMILEE RUIZ is a 78 year old F with ORIF, Hip Fracture LABS: Last INR: 1.3 Last HGB: 10.7 Last HCT: 32.8 Last PLT: 295 Last dose of 3 mg given on 12/08/18 at 1741 A:INR of 1.3 is below desired range. Target range for this patient is: 1.6 - 2.5 P: Warfarin dose: 3 mg Today at 1600 Bridge Therapy: None Next INR due 12/10/18 Pharmacy anticoagulation service will continue to follow. ESTHER GABRIEL [facility], 12/09/18 [id number]
[2018-12-09 15:00] VITALS: BP 136/85
[2018-12-09] MEDS ORDERED: WARFARIN 3 MG TABLET. PO ONE (16:00)
--- NOTE | 2018-12-09 16:28 | NUR ---
SW following. SW met with pt to discuss dc planning. Pt would like to go to [place] for SNU. RN advised pt likely not discharging over the weekend. SW to send referral Wednesday morning (12/12/18). RN notified. SW will continue to follow.
[2018-12-09] MEDS: APRISO 0.375 GM PO SCH (17:26)
[2018-12-09 19:00] VITALS: BP 131/57
--- NOTE | 2018-12-09 19:03 | PDOC ---
PROGRESS NOTES Subjective Subjective Problems overnight: Still has left shoulder pain, able to ambulate better with left hip status post pinning Objective Vital Signs Vital Signs Date Time Temp Pulse Resp B/P (MAP) Pulse Ox O2 Delivery O2 Flow Rate FiO2 12/09/18 15:00 98.1 98 18 136/85 (102) 96 Room Air 98.1 12/09/18 12:36 3.0 Physical Exam Left shoulder active range of motion limited left hip incision clean dry intact leg lengths equal distal neurovascular status intact Labs Laboratory Tests Test 12/08/18 04:20 12/09/18 12:20 Hemoglobin 10.7 g/dL (12.0-15.5) Hematocrit 32.8 % (36.0-47.0) Mean Corpuscular Hemoglobin Concent 33 g/dL (31-37) Prothrombin Time 15.5 SEC (11.7-14.0) Prothromb Time International Ratio 1.3 (0.8-1.1) Laboratory Tests Test 12/09/18 12:20 Prothrombin Time 15.5 SEC (11.7-14.0) Prothromb Time International Ratio 1.3 (0.8-1.1) Imaging MRI left shoulder shows possibility of a superior labral tear but motion artifact makes this unclear. She does have a nondisplaced fracture of the greater tuberosity proximal humerus Assessment Assessment POD# [], S/P [closed reduction percutaneous pinning left hip] Plan Plan of Care Weightbearing as tolerated left hip no hip precautions necessary May use sling to left arm for comfort as needed Writing orders for physical therapy to try a platform walker attachment to see if that allows her to better ambulate with her shoulder injury and still give some support SHABANA SWEENEY MD Dec 09, 2018 19:03
[2018-12-09] MEDS: TEMAZEPAM 15 MG CAPSULE PO SCH (20:40)
[2018-12-09] MEDS: BENZONATATE 100 MG CAPSULE. PO SCH (20:41)
[2018-12-09 23:00] VITALS: BP 116/40
[2018-12-10] MEDS: oxyCODONE IR 5 MG TABLET PO PRN (02:08)
[2018-12-10 03:00] VITALS: BP 131/50
--- NOTE | 2018-12-10 03:54 | NUR ---
Patient was on 3L mask and requested the NC, RN switched pt from mask to NC and O2 saturation remained WNL. Pt's vitals were rechecked and remained at 85% and only improved when put back on the mask. RN will continue to monitor pt closely.
[2018-12-10 05:04] LABS: PROTHROMBIN TIME PATIENT 16.3 SEC (11.7-14.0)
[2018-12-10] MEDS: BENZONATATE 100 MG CAPSULE. PO SCH ×3 (06:02→21:19)
[2018-12-10] MEDS: PANTOPRAZOLE 40 MG TABLET.DR. PO SCH (06:02)
[2018-12-10 07:00] VITALS: BP 105/54
[2018-12-10] MEDS: IPRATRPIUM/ALBUTEROL 0.5/2.5MG 3 ML NEBU. NEB SCH ×4 (07:11→19:17)
[2018-12-10] MEDS: FLUTICASONE 50MCG/NASAL SPRAY 16GM BOTTLE. NS SCH (08:42)
[2018-12-10] MEDS: APRISO 0.375 GM PO SCH (08:44)
[2018-12-10] MEDS: LOSARTAN POTASSIUM 50 MG TABLET. PO SCH (08:45)
[2018-12-10] MEDS: POTASSIUM CHLORIDE 20 MEQ TABLET.ER. PO SCH ×2 (08:46→15:27)
[2018-12-10] MEDS: MULTIVITAMIN with MINERAL TABLET. PO SCH (08:46)
[2018-12-10] MEDS: CALCIUM CARB/VIT D3 500/200 TABLET. PO SCH (08:47)
[2018-12-10] MEDS: SENNOSIDES/DOCUSATE 8.6/50MG TABLET. PO SCH (08:47)
[2018-12-10] MEDS: POLYETHYLENE GLYCOL 3350 17 GM PACKET. PO SCH (08:48)
[2018-12-10 11:00] VITALS: BP 104/50
[2018-12-10 15:00] VITALS: BP 110/42
--- NOTE | 2018-12-10 15:21 | NUR ---
Pharmacy Warfarin Dosing Note S: Pharmacy consulted to assist with anticoagulation therapy started 12/07/18 O: EMILEE RUIZ is a 78 year old F with ORIF, Hip Fracture LABS: Last INR: 1.3 Last HGB: 10.7 Last HCT: 32.8 Last PLT: 295 Last dose of 3 mg given on 12/09/18 at 1727 A:INR of 1.3 is below desired range. Target range for this patient is: 1.6 - 2.5 P: Warfarin dose: 5 mg Today at 1600 Bridge Therapy: None Next INR due 3/3 AM Pharmacy anticoagulation service will continue to follow. MIYA SILVA RP, 12/10/18 7020
[2018-12-10] MEDS ORDERED: WARFARIN 5 MG TABLET. PO ONE (16:00)
[2018-12-10 19:00] VITALS: BP 149/67
[2018-12-10] MEDS ORDERED: SENNOSIDES 8.6 MG TABLET PO PRN (21:00)
[2018-12-10] MEDS: DOCUSATE SODIUM 100 MG CAPSULE. PO SCH (21:18)
[2018-12-10] MEDS: TEMAZEPAM 15 MG CAPSULE PO SCH (21:18)
[2018-12-10] MEDS: BENZOCAINE/MENTHOL LOZENGE. PO PRN (21:18)
[2018-12-10] MEDS: guaiFENesin DM 600/30MG 1 TAB TAB.ER.12H PO SCH (21:18)
--- NOTE | 2018-12-10 21:48 | PN ---
DATE: 12/10/2018 LOCATION: Room 436. SUBJECTIVE: The patient is awake, alert, has mistaken me for her nephew but then realized that she was wrong. She is expected soreness, understands the need for rehab and overall feels like she is doing okay. OBJECTIVE: VITAL SIGNS: Stable. She is afebrile. CHEST: Clear. HEART: Regular. ABDOMEN: Benign. LABORATORY DATA: Hemoglobin postop was 10.7 on the . INR is 1.3 this morning. IMPRESSION: 1. Status post hip fracture with pinning of the same. 2. Left shoulder fracture with conservative therapy. 3. All of these secondary to fall. PLAN: Continue present care. Anticipate transfer to rehab or assisted on Wednesday per the patient. ROXANN COLÓN MD DR: ANUSHA/corrina JOB#: [id number] / [id number]
--- NOTE | 2018-12-10 21:49 | NUR ---
Pt. stated she only takes 1 temazepam at home so this nurse only gave her one. Addendum: 12/11/18 at 0358 by GLADIS HAQ RN Pulled 2 tablets, administered 1 tablet and returned 1 tablet
[2018-12-10 23:00] VITALS: BP 139/65
[2018-12-11 03:00] VITALS: BP 170/72
[2018-12-11] MEDS ORDERED: ALBUTEROL SULFATE 2.5 MG/3 ML NEBU. NEB ONE (03:00)
[2018-12-11] MEDS ORDERED: ALBUTEROL SULFATE 2.5 MG/3 ML NEBU. NEB PRN (06:00)
[2018-12-11] MEDS: oxyCODONE IR 5 MG TABLET PO PRN ×2 (06:30→14:48)
[2018-12-11] MEDS: BENZONATATE 100 MG CAPSULE. PO SCH ×3 (06:31→21:52)
[2018-12-11] MEDS: PANTOPRAZOLE 40 MG TABLET.DR. PO SCH (06:31)
[2018-12-11 06:57] LABS: PROTHROMBIN TIME PATIENT 18.2 SEC (11.7-14.0)
[2018-12-11 07:00] VITALS: BP 95/34
[2018-12-11] MEDS: POLYETHYLENE GLYCOL 3350 17 GM PACKET. PO SCH (07:58)
[2018-12-11] MEDS: POTASSIUM CHLORIDE 20 MEQ TABLET.ER. PO SCH ×2 (07:58→14:47)
[2018-12-11] MEDS: FLUTICASONE 50MCG/NASAL SPRAY 16GM BOTTLE. NS SCH (08:01)
[2018-12-11] MEDS: MULTIVITAMIN with MINERAL TABLET. PO SCH (08:01)
[2018-12-11] MEDS: SENNOSIDES/DOCUSATE 8.6/50MG TABLET. PO SCH (08:01)
[2018-12-11] MEDS: CALCIUM CARB/VIT D3 500/200 TABLET. PO SCH (08:01)
[2018-12-11] MEDS: guaiFENesin DM 600/30MG 1 TAB TAB.ER.12H PO SCH ×2 (08:01→21:51)
[2018-12-11] MEDS: APRISO 0.375 GM PO SCH (08:02)
[2018-12-11] MEDS: LOSARTAN POTASSIUM 25 MG TABLET. PO SCH (08:02)
[2018-12-11] MEDS: IPRATRPIUM/ALBUTEROL 0.5/2.5MG 3 ML NEBU. NEB SCH ×4 (08:56→19:30)
[2018-12-11 11:00] VITALS: BP 126/65
[2018-12-11] MEDS: BUDESONIDE 0.5 MG/2 ML NEBU. NEB SCH ×2 (12:30→19:30)
--- NOTE | 2018-12-11 12:39 | NUR ---
Pharmacy Warfarin Dosing Note S: Pharmacy consulted to assist with anticoagulation therapy started 12/07/18 O: EMILEE RUIZ is a 78 year old F with ORIF,Hip Fracture LABS: Last INR: 1.5 Last HGB: 10.7 Last HCT: 32.8 Last PLT: 295 Last dose of 5 mg given on 12/10/18 at 1526 A:INR of 1.5 is below desired range. Target range for this patient is: 1.6 - 2.5 P: Warfarin dose: 3 mg Today at 1600 Bridge Therapy: None Next INR due 3/4 AM Pharmacy anticoagulation service will continue to follow. MIYA SILVA [facility], 12/11/18 1365
[2018-12-11] MEDS: fentaNYL PF VIAL 100 MCG/2 ML VIAL IV PRN (14:48)
[2018-12-11 15:00] VITALS: BP 137/64
--- NOTE | 2018-12-11 15:17 | PDOC ---
PROGRESS NOTES Subjective Subjective Problems overnight: Hip feels much better since surgery, shoulder is still sore but ambulating okay with a platform walker as long as her arm is at her side Objective Vital Signs Vital Signs Date Time Temp Pulse Resp B/P (MAP) Pulse Ox O2 Delivery O2 Flow Rate FiO2 12/11/18 15:13 Nasal Cannula 3.0 12/11/18 14:48 98 12/11/18 11:00 98.1 108 20 126/65 (85) 98.1 Physical Exam Hip incision clean dry intact shoulder with minimal mobility and tenderness as expected Labs Laboratory Tests Test 12/10/18 03:55 12/11/18 06:18 Prothrombin Time 16.3 SEC (11.7-14.0) 18.2 SEC (11.7-14.0) Prothromb Time International Ratio 1.3 (0.8-1.1) 1.5 (0.8-1.1) Laboratory Tests Test 12/11/18 06:18 Prothrombin Time 18.2 SEC (11.7-14.0) Prothromb Time International Ratio 1.5 (0.8-1.1) Assessment Assessment POD# [], S/P [closed reduction percutaneous screw placement left hip and closed treatment left shoulder greater tuberosity fracture] Plan Plan of Care Continue weightbearing as tolerated left hip no hip precautions necessary May weight-bear as tolerated left shoulder with platform walker attachment as long as she keeps her arm down at her side Follow-up Dr. Webber about 2 weeks from discharge SHABANA WEBBER MD Dec 11, 2018 15:17
[2018-12-11] MEDS ORDERED: WARFARIN 3 MG TABLET. PO ONE (16:00)
[2018-12-11 19:00] VITALS: BP 129/62
[2018-12-11] MEDS ORDERED: MAGNESIUM HYDROXIDE 2,400 MG/30 ML ORAL.SUSP. PO PRN (20:15)
[2018-12-11] MEDS ORDERED: MAGNESIUM HYDROXIDE 2,400 MG/30 ML ORAL.SUSP. PO ONE (20:30)
--- NOTE | 2018-12-11 20:42 | NUR ---
ok to leave IV out per Dr. Kolb.
[2018-12-11] MEDS: TEMAZEPAM 15 MG CAPSULE PO SCH (21:51)
[2018-12-11] MEDS: DOCUSATE SODIUM 100 MG CAPSULE. PO SCH (21:52)
[2018-12-11 23:00] VITALS: BP 146/57
[2018-12-12 03:00] VITALS: BP 146/76
[2018-12-12 04:59] LABS: PROTHROMBIN TIME PATIENT 20.7 SEC (11.7-14.0)
[2018-12-12] MEDS: oxyCODONE IR 5 MG TABLET PO PRN ×4 (05:58→19:14)
[2018-12-12] MEDS: BENZONATATE 100 MG CAPSULE. PO SCH ×3 (05:58→21:11)
[2018-12-12] MEDS: PANTOPRAZOLE 40 MG TABLET.DR. PO SCH (05:58)
--- NOTE | 2018-12-12 05:58 | PN ---
DATE: 12/11/2018 LOCATION: She is in room 436. SUBJECTIVE: The patient is awake and alert, complains of more shortness of breath today than what she has had. She otherwise is anxious to get up and get going and get over this. OBJECTIVE: Vital signs are stable. She is afebrile. She remains on 3 liters per nasal cannula O2. INR this morning is 1.5 on warfarin. Case discussed with ortho who feels like she is doing well from a hip standpoint and the shoulder is just a time thing with a sling for comfort if necessary. IMPRESSION: 1. Status post hip fracture with pinning. 2. Left shoulder fracture with conservative therapy planned. 3. All secondary to fall. 4. Increased subjective shortness of breath with O2 needs as described above. PLAN: We will add Pulmicort to her regimen as she was taking Azmacort as an outpatient and she believes this would help her. I am also going to check a chest x-ray. I would expect the likelihood of this being a pulmonary embolism low with the ongoing warfarin therapy and the time since surgery, although I suppose that needs to be considered too. ROXANN COLÓN MD DR: ANUSHA/corrina JOB#: [id number] / [id number]
--- NOTE | 2018-12-12 06:02 | NUR ---
Pt. had chest xray done 12/11/18. this nurse left a message to radiology about getting it read. It is not showing up under imaging. Tried to call again this morning. Will pass on to day shift and try again in an hour. Addendum: 12/12/18 at 0712 by GLADIS HAQ RN Has already been read this morning.
--- NOTE | 2018-12-12 06:29 | RAD ---
Two-view chest dated 12/11/2018. Comparison made to 12/07/2018. 02/03/2016. CLINICAL INDICATION: Shortness of breath and cough. FINDINGS: PA and lateral views obtained. Heart and mediastinal contours are stable. Nodular density within the superior segment left lower lobe with adjacent fiducial markers, unchanged. Blunting of the left costophrenic sulcus is new from prior study. No pneumothorax. IMPRESSION: 1. Left lower lobe nodule with adjacent fiducial markers, similar to prior study. 2. Small left pleural effusion, new from prior exam. 3. Findings consistent with COPD. Electronically signed by: Marcus Bay MD (12/12/2018 6:26 AM) [facility]
[2018-12-12] MEDS: IPRATRPIUM/ALBUTEROL 0.5/2.5MG 3 ML NEBU. NEB SCH ×4 (06:59→19:41)
[2018-12-12] MEDS: BUDESONIDE 0.5 MG/2 ML NEBU. NEB SCH ×2 (06:59→19:41)
[2018-12-12 07:00] VITALS: BP 101/65
[2018-12-12] MEDS ORDERED: WARF10TA45 PO (08:55)
--- NOTE | 2018-12-12 08:56 | DISCH ---
DISCHARGE DISCHARGE INFORMATION: FINAL DIAGNOSIS Problems Medical Problems: (1) Subcapital fracture of left femur Status: Acute CONDITION ON DISCHARGE: Stable CODE STATUS: Code Status: Full POST DISCHARGE ORDERS: ACTIVITY ORDERS: Activity as tolerated WEIGHT BEARING STATUS: As tolerated TREATMENT/EQUIPMENT ORDERS: Physical Therapy For: Evalulation/Treatment Occupational Therapy For: Evaluation/Treatment (Check INR daily until stable, goal 1.6-2.5. Length of treatment per Ortho) DISCHARGE MEDICATIONS: Home Meds Active Scripts Potassium Chloride (K-TAB) 10 Meq Tablet.er, 20 MEQ PO BID for 7 Days, TAB.SR Prov:REESE BARRETO MD 09/13/16 Reported Medications Diltiazem Hcl (CARDIZEM CD) 180 Mg Cap.er.24h, 1 CAP PO DAILY for HTN , #90 CAP 1 Refill 12/08/18 Multivitamin (MULTIVITAMINS) 1 Each Tablet, 1 TAB PO DAILY for supplemental , # 30 TAB 5 Refills 12/08/18 Calcium Carbonate/Vitamin D3 (CALCIUM + VITAMIN D TABLET) 1 Each Tablet, 1 EACH PO DAILY for supplement , TAB 12/08/18 Polyethylene Glycol 3350 (MIRALAX) 17 Gm Powd.pack, 1 PACKET PO DAILY for constipation, #30 PACKET 3 Refills 12/08/18 Ranitidine Hcl (RANITIDINE HCL) 150 Mg Tablet, 1 TAB PO BID for GERD, #180 TAB 3 Refills 12/08/18 Dicyclomine Hcl (DICYCLOMINE HCL) 10 Mg Capsule, 10 MG PO QID for unknown, CAP 12/08/18 Cyclobenzaprine Hcl (CYCLOBENZAPRINE HCL) 10 Mg Tablet, 1 TAB PO TID for muscle spasms, #90 TAB 12/08/18 Pantoprazole Sodium (PROTONIX) 20 Mg Tablet.dr, 2 TAB PO DAILY for GERD, #30 TAB 12/08/18 Albuterol Sulfate (ALBUTEROL SULFATE CONC NEB SOLN) 2.5 Mg/0.5 Ml Vial.neb, 2.5 MG IH QID 09/22/13 [Pro Air] No Conflict Check, 6XDAY 09/22/13 Tiotropium [place] (SPIRIVA) 18 Mcg Cap.w.dev, 18 MCG IH DAILY 09/22/13 [Synbicort] No Conflict Check, BID 09/22/13 [Poltethylene Glycol] No Conflict Check, CECILY 09/22/13 [Poltethylene] No Conflict Check 09/22/13 Mesalamine (MESALAMINE) 1 Gm Powder, 1 GM MC TID 09/22/13 [Flexer] No Conflict Check, DAILY 09/22/13 Hydrocodone Bit/Acetaminophen (HYDROCODON-ACETAMINOPHEN 5-500) 1 Each Tablet, 1 EACH PO BID 09/22/13 Fluticasone Propionate (FLUTICASONE PROPIONATE NASAL SPRAY) 16 Gm [place].susp, 16 GM NS DAILY 09/22/13 Losartan/Hydrochlorothiazide (LOSARTAN-HCTZ 100-25 MG TAB) 1 Each Tablet, 1 EACH PO DAILY 09/22/13 Temazepam (TEMAZEPAM) 30 Mg Capsule, 30 MG PO HS 09/22/13 NAS ORDONEZ MD Dec 12, 2018 08:56
--- NOTE | 2018-12-12 08:58 | PDOC ---
SUBJECTIVE Subjective Doing well, pain adequately controlled. OBJECTIVE Objective Reviewed. Vital Signs Vital Signs Date Time Temp Pulse Resp B/P (MAP) Pulse Ox O2 Delivery O2 Flow Rate FiO2 12/12/18 07:26 20 Nasal Cannula 3.0 12/12/18 07:00 97.7 110 16 101/65 (77) 99 Nasal Cannula 3.0 97.7 12/12/18 06:59 96 Nasal Cannula 3.0 12/12/18 05:58 20 Room Air 12/12/18 03:00 97.8 110 18 146/76 (99) 95 Room Air 97.8 12/11/18 23:00 98.0 116 20 146/57 (86) 96 Room Air 98.0 12/11/18 20:00 Nasal Cannula 3.0 12/11/18 19:30 91 Room Air 12/11/18 19:00 97.6 126 18 129/62 (84) 96 Room Air 97.6 12/11/18 16:52 100 12/11/18 15:13 Nasal Cannula 3.0 12/11/18 15:00 97.5 100 20 137/64 (88) 100 Room Air 97.5 12/11/18 14:48 98 Nasal Cannula 3.0 12/11/18 11:31 98 Nasal Cannula 3.0 12/11/18 11:00 98.1 108 20 126/65 (85) 97 Nasal Cannula 3.0 98.1 12/11/18 08:58 98 Nasal Cannula 3.0 PHYSICAL EXAM Physical Exam Alert, oriented RRR CTAB No edema bilaterally Normal distal pulses ASSESSMENT/PLAN Assessment/Plan 1. Status post hip fracture with pinning. 2. Left shoulder fracture with conservative therapy planned. 3. All secondary to fall. 4. Increased subjective shortness of breath with O2 needs as described above. Plan for dc to SNF today pending placement. Warfarin tx length per Ortho COMMENT Lab Laboratory Tests Test 12/12/18 04:30 Prothrombin Time 20.7 SEC (11.7-14.0) Prothromb Time International Ratio 1.8 (0.8-1.1) NAS ORDONEZ MD Dec 12, 2018 08:58
[2018-12-12] MEDS: POLYETHYLENE GLYCOL 3350 17 GM PACKET. PO SCH (09:00)
[2018-12-12] MEDS: SENNOSIDES/DOCUSATE 8.6/50MG TABLET. PO SCH (09:00)
[2018-12-12] MEDS: LOSARTAN POTASSIUM 25 MG TABLET. PO SCH (09:00)
[2018-12-12] MEDS: APRISO 0.375 GM PO SCH (09:15)
[2018-12-12] MEDS: POTASSIUM CHLORIDE 20 MEQ TABLET.ER. PO SCH ×2 (09:17→15:40)
[2018-12-12] MEDS: CALCIUM CARB/VIT D3 500/200 TABLET. PO SCH (09:18)
[2018-12-12] MEDS: MULTIVITAMIN with MINERAL TABLET. PO SCH (09:19)
[2018-12-12] MEDS: guaiFENesin DM 600/30MG 1 TAB TAB.ER.12H PO SCH ×2 (09:27→21:11)
[2018-12-12] MEDS: FLUTICASONE 50MCG/NASAL SPRAY 16GM BOTTLE. NS SCH (09:27)
[2018-12-12 11:00] VITALS: BP 122/75
--- NOTE | 2018-12-12 11:43 | NUR ---
GLADIS following for discharge planning. Discussed with RN, RN advised pt is ready for discharge. [facility] accepted pt, pending insurance approval. RN notified. GLADIS will continue to follow.
[2018-12-12 15:00] VITALS: BP 118/61
--- NOTE | 2018-12-12 15:29 | NUR ---
Pharmacy Warfarin Dosing Note S:Pharmacy consulted to assist with anticoagulation therapy started 12/07/18 with target INR: 1.6 - 2.5 O:EMILEE RUIZ is a 78 year old F with ORIF Hip Fracture LABS: Last INR: 1.8 Last HGB: 10.7 Last HCT: 32.8 Last PLT: 295 Last dose of 3 mg given on 12/10/18 at 1526 Previous Regimen: Vitamin K given: Drug Interaction Changes: None Ongoing Drug Interactions: A:INR of 1.8 is within desired range. Target range for this patient is: 1.6 - 2.5 P: Warfarin dose: 3 mg Today at 1600 Bridge Therapy: None Next INR due TOMORROW. Pharmacy anticoagulation service will continue to follow. TOI WILLIAM [facility], 12/12/18 [id number]
[2018-12-12] MEDS ORDERED: WARFARIN 3 MG TABLET. PO ONE (16:00)
[2018-12-12 19:00] VITALS: BP 152/69
[2018-12-12] MEDS: DOCUSATE SODIUM 100 MG CAPSULE. PO SCH (21:00)
[2018-12-12] MEDS: TEMAZEPAM 15 MG CAPSULE PO SCH (21:11)
[2018-12-12 23:00] VITALS: BP 132/68
[2018-12-13 03:00] VITALS: BP 129/62
[2018-12-13 05:03] LABS: PROTHROMBIN TIME PATIENT 20.7 SEC (11.7-14.0)
[2018-12-13] MEDS: PANTOPRAZOLE 40 MG TABLET.DR. PO SCH (06:06)
[2018-12-13] MEDS: BENZONATATE 100 MG CAPSULE. PO SCH (06:06)
[2018-12-13 07:00] VITALS: BP 159/76
[2018-12-13] MEDS: IPRATRPIUM/ALBUTEROL 0.5/2.5MG 3 ML NEBU. NEB SCH ×2 (07:32→11:33)
[2018-12-13] MEDS: BUDESONIDE 0.5 MG/2 ML NEBU. NEB SCH (07:32)
[2018-12-13] MEDS: FLUTICASONE 50MCG/NASAL SPRAY 16GM BOTTLE. NS SCH (08:25)
[2018-12-13] MEDS: LOSARTAN POTASSIUM 25 MG TABLET. PO SCH (08:27)
[2018-12-13] MEDS: guaiFENesin DM 600/30MG 1 TAB TAB.ER.12H PO SCH (08:28)
[2018-12-13] MEDS: CALCIUM CARB/VIT D3 500/200 TABLET. PO SCH (08:28)
[2018-12-13] MEDS: MULTIVITAMIN with MINERAL TABLET. PO SCH (08:28)
[2018-12-13] MEDS: POTASSIUM CHLORIDE 20 MEQ TABLET.ER. PO SCH (08:29)
[2018-12-13] MEDS: oxyCODONE IR 5 MG TABLET PO PRN (08:29)
[2018-12-13] MEDS: APRISO 0.375 GM PO SCH (08:29)
[2018-12-13] MEDS: POLYETHYLENE GLYCOL 3350 17 GM PACKET. PO SCH (08:30)
[2018-12-13] MEDS: SENNOSIDES/DOCUSATE 8.6/50MG TABLET. PO SCH (08:30)
--- NOTE | 2018-12-13 09:13 | PDOC3 ---
Discharge Summary Date of Admission: Dec 07, 2018 Date of Discharge: Dec 13, 2018 Admitting Diagnosis comment: Fall L hip fracture L shoulder pain FINAL DIAGNOSIS L femoral head fracture L greater tuberosity of humerus fracture Brief Hospital Course Ms. Gongora is a 78-year-old white female with mild hypertension, COPD, and osteoporosis. She was admitted after a fall during which she sustained a L femoral neck fracture and L humeral fracture. She had a closed reduction and percutaneous screw placement x 3 on the left hip, for femur fracture on . Humeral fracture was discovered on MRI after negative XR and is being treated conservatively. She was started on warfarin for post-operative anticoagulation. Her pain is adequately controlled and she will be transferred to [facility] for senior care and rehabilitation. She will follow up with Ortho as directed and continue anticoagulation for short-term as determined by Ortho. CONDITION AT DISCHARGE: Improved, Stable Discharge Medications Current Medications Sodium Chloride 1,000 ml @ 100 mls/hr Q10H IV Last administered on 12/07/18at 01:06; Start 12/07/18 at 00:45; Stop 12/07/18 at 10:44; Status DC Fentanyl Citrate (Fentanyl 2ml Vial) 25 mcg PRN Q15MIN PRN IV PAIN GREATER THAN 3/10 Last administered on 12/07/18at 01:05; Start 12/07/18 at 00:45; Stop at 21:09; Status DC Hydromorphone HCl (Dilaudid) 0.5 mg 1X ONCE IV Last administered on 12/07/18at 02:50; Start 12/07/18 at 02:45; Stop 12/07/18 at 02:47; Status DC Ondansetron HCl (Zofran) 4 mg PRN Q8HRS PRN IV NAUSEA/VOMITING; Start 12/07/18 at 04:00; Stop 12/08/18 at 03:59; Status DC Fentanyl Citrate (Fentanyl 2ml Vial) 50 mcg PRN Q1HR PRN IV PAIN Last administered on 12/08/18at 01:00; Start 12/07/18 at 04:00; Stop 12/08/18 at 03:59 ; Status DC Sodium Chloride 1,000 ml @ 125 mls/hr Q8H IV Last administered on 12/07/18at 21 :42; Start 12/07/18 at 04:00; Stop 12/08/18 at 03:59; Status DC Temazepam (Restoril) 30 mg HS PO Last administered on 12/12/18 21:11; Start at 21:00 Losartan Potassium (Cozaar) 100 mg DAILY PO Last administered on 12/10/18 08:45 ; Start 12/07/18 at 09:00; Stop 12/10/18 at 17:42; Status DC Non-Formulary Medication (Mesalamine ) 1 gm TID MC ; Start 12/07/18 at 09:00; Stop 12/09/18 at 14:30; Status DC Albuterol/ Ipratropium (Duoneb) 3 ml RTQID NEB Last administered on 12/13/18 07 :32; Start 12/07/18 at 12:00 Polyethylene Glycol (miraLAX PACKET) 17 gm DAILY PO Last administered on at 07:58; Start 12/07/18 at 09:00 Hydrochlorothiazide (Hydrodiuril) 25 mg DAILY PO ; Start 12/07/18 at 09:00; Stop 12/08/18 at 08:47; Status DC Ondansetron HCl (Zofran) 4 mg PRN Q6HRS PRN IV NAUSEA/VOMITING Last administered on 12/07/18at 21:43; Start 12/07/18 at 09:30; Stop 12/08/18 at 09:29 ; Status DC Fentanyl Citrate (Fentanyl 2ml Vial) 25 mcg PRN Q5MIN PRN IV MILD PAIN; Start 12/07/18 at 09:30; Stop 12/07/18 at 21:09; Status DC Fentanyl Citrate (Fentanyl 2ml Vial) 50 mcg PRN Q5MIN PRN IV MODERATE TO SEVERE PAIN Last administered on 12/07/18at 19:21; Start 12/07/18 at 09:30; Stop 12/07/18 at 21:09; Status DC Ringer's Solution 1,000 ml @ 30 mls/hr Q24H IV ; Start 12/07/18 at 09:29; Stop 12/07/18 at 21:28; Status DC Lidocaine HCl (Xylocaine-Mpf 1% 2ml Vial) 2 ml PRN 1X PRN ID PRIOR TO IV START ; Start 12/07/18 at 09:30; Stop 12/08/18 at 09:29; Status DC Prochlorperazine Edisylate (Compazine) 5 mg PACU PRN PRN IV NAUSEA, MRX1; Start 12/07/18 at 09:30; Stop 12/07/18 at 21:09; Status DC Fentanyl Citrate (Fentanyl 2ml Vial) 100 mcg STK-MED ONCE .ROUTE ; Start at 15:09; Stop 12/07/18 at 15:10; Status DC Propofol 20 ml @ As Directed STK-MED ONCE IV ; Start 12/07/18 at 15:13; Stop at 15:14; Status DC Dexamethasone Sodium Phosphate (Decadron) 20 mg STK-MED ONCE .ROUTE ; Start at 15:13; Stop 12/07/18 at 15:14; Status DC Ondansetron HCl (Zofran) 4 mg STK-MED ONCE .ROUTE ; Start 12/07/18 at 15:13; Stop 12/07/18 at 15:14; Status DC Lidocaine HCl (Lidocaine Pf 2% Vial) 5 ml STK-MED ONCE .ROUTE ; Start 12/07/18 at 15:13; Stop 12/07/18 at 15:14; Status DC Cefazolin Sodium 50 ml @ 100 mls/hr 1X ONCE IV Last administered on at 18:08; Start 12/07/18 at 17:45; Stop 12/07/18 at 18:14; Status DC Cefazolin Sodium 50 ml @ As Directed STK-MED ONCE IV ; Start 12/07/18 at 17:44; Stop 12/07/18 at 17:45; Status DC Esmolol HCl (Brevibloc) 100 mg STK-MED ONCE IVP ; Start 12/07/18 at 18:16; Stop 12/07/18 at 18:17; Status DC Oxycodone HCl (Roxicodone) 5 mg PRN Q3HRS PRN PO PAIN Last administered on at 08:29; Start 12/07/18 at 19:00 Fentanyl Citrate (Fentanyl 2ml Vial) 25 mcg PRN Q1HR PRN IV PAIN Last administered on 12/09/18at 12:05; Start 12/07/18 at 19:00 Senna/Docusate Sodium (Senna Plus) 1 tab DAILY PO Last administered on 08:01; Start 12/08/18 at 09:00 Polyethylene Glycol (miraLAX PACKET) 17 gm PRN DAILY PRN PO CONSTIPATION, 1st CHOICE; Start 12/07/18 at 19:00 Ondansetron HCl (Zofran) 4 mg PRN Q4HRS PRN IV NAUSEA/VOMITING Last administered on 12/08/18 13:43; Start 12/07/18 at 19:00 Warfarin Sodium (Coumadin) 7.5 mg 1X ONCE PO Last administered on 12/07/18 21 :43; Start 12/07/18 at 16:00; Stop 12/07/18 at 19:06; Status DC Warfarin Sodium (Coumadin Per Pharmacy) 1 each PRN DAILY PRN MC SEE COMMENTS Last administered on 12/12/18 15:27; Start 12/08/18 at 19:00 Magnesium Hydroxide (Milk Of Magnesia) 2,400 mg 1X PRN PRN PO CONSTIPATION; Start 12/08/18 at 06:00; Stop 12/09/18 at 05:59; Status DC Bisacodyl (Dulcolax Supp) 10 mg 1X PRN PRN ND CONSTIPATION; Start 12/08/18 at 16:00; Stop 12/09/18 at 15:59; Status DC Dextrose (Dextrose 50%-Water Syringe) 12.5 gm PRN Q15MIN PRN IV SEE COMMENTS; Start 12/07/18 at 19:00 Cefazolin Sodium 1 gm/Dextrose 50 ml @ 100 mls/hr Q6HRS IV Last administered on 12/08/18at 12:33; Start 12/08/18 at 00:00; Stop 12/08/18 at 12:29; Status DC Throat Lozenges (Cepacol Sore Throat Lozenge) 1 duke PRN Q2HRS PRN PO SORE THROAT 1ST CHOICE Last administered on 12/10/18 21:18; Start 12/07/18 at 19:20 Saliva Substitute (Biotene Moisturizing Mouth) 2 spray PRN Q15MIN PRN PO DRY MOUTH Last administered on 12/08/18 09:28; Start 12/08/18 at 08:30 Throat Lozenges (Chloraseptic) 1 spray PRN Q2HR PRN PO SORE THROAT 2ND CHOICE Last administered on 12/08/18 09:28; Start 12/08/18 at 08:30 Warfarin Sodium (Coumadin) 3 mg 1X WARF ONCE PO Last administered on 17:41; Start 12/08/18 at 16:00; Stop 12/08/18 at 16:01; Status DC Cyclobenzaprine HCl (Flexeril) 10 mg TID PO Last administered on 12/08/18 21: 32; Start 12/08/18 at 21:00; Stop 12/09/18 at 08:02; Status DC Dicyclomine HCl (Bentyl) 10 mg QID PO Last administered on 12/08/18 21:32; Start 12/08/18 at 21:00; Stop 12/09/18 at 08:02; Status DC Fluticasone Propionate (Flonase) 1 spray DAILY NS Last administered on 08:25; Start 12/09/18 at 09:00 Calcium/Vitamin D (Oscal D 500mg/ 200uts) 1 tab DAILY PO Last administered on 08:28; Start 12/09/18 at 09:00 Diltiazem HCl (Cardizem 24hr Cd) 180 mg DAILY PO Last administered on 12/13/18 08:26; Start 12/09/18 at 09:00 Multivitamins (Thera M Plus) 1 tab DAILY PO Last administered on 12/13/18 08:28 ; Start 12/09/18 at 09:00 Pantoprazole Sodium (Protonix) 40 mg DAILYAC PO Last administered on 12/13/18 06:06; Start 12/09/18 at 07:30 Non-Formulary Medication (Polyethylene Glycol 3350 (Miralax)) 1 packet DAILY PO ; Start 12/09/18 at 09:00; Status UNV Potassium Chloride (Klor-Con) 20 meq BIDWMEALS PO Last administered on 08:29; Start 12/09/18 at 08:00 Non-Formulary Medication (Ranitidine Hcl ) 1 tab BID PO ; Start 12/08/18 at 21: 00; Status UNV Warfarin Sodium (Coumadin) 3 mg 1X WARF ONCE PO Last administered on 12/09/18 17:27; Start 12/09/18 at 16:00; Stop 12/09/18 at 16:01; Status DC Non-Formulary Medication 4 ea DAILY PO Last administered on 12/13/18 08:29; Start 12/09/18 at 15:00 Benzonatate (Tessalon Perle) 200 mg Q8HRS PO Last administered on 12/13/18 06: 06; Start 12/09/18 at 20:00 Warfarin Sodium (Coumadin) 5 mg 1X WARF ONCE PO Last administered on 12/10/18 15:26; Start 12/10/18 at 16:00; Stop 12/10/18 at 16:01; Status DC Losartan Potassium (Cozaar) 75 mg DAILY PO Last administered on 12/13/18 08:27 ; Start 12/11/18 at 09:00 Docusate Sodium (Colace) 100 mg QHS PO Last administered on 12/11/18 21:52; Start 12/10/18 at 21:00 Guaifenesin (MUCINEX ER with DM) 1 tab BID PO Last administered on 12/13/18 08: 28; Start 12/10/18 at 21:00 Sennosides (Senna) 8.6 mg PRN BID PRN PO CONSTIPATION, 2nd CHOICE Last administered on 12/12/18 09:16; Start 12/10/18 at 21:00 Albuterol Sulfate (Ventolin Neb Soln) 2.5 mg 1X ONCE NEB Last administered on 12/11/18 02:58; Start 12/11/18 at 03:00; Stop 12/11/18 at 03:01; Status DC Albuterol Sulfate (Ventolin Neb Soln) 2.5 mg PRN Q3HRS PRN NEB SHORTNESS OF BREATH; Start 12/11/18 at 06:00 Budesonide (Pulmicort) 0.5 mg RTBID NEB Last administered on 12/13/18 07:32; Start 12/11/18 at 12:30 Warfarin Sodium (Coumadin) 3 mg 1X WARF ONCE PO Last administered on 12/11/18 14:46; Start 12/11/18 at 16:00; Stop 12/11/18 at 16:01; Status DC Magnesium Hydroxide (Milk Of Magnesia) 2,400 mg 1X ONCE PO Last administered on 3/3/19at 21:50; Start 12/11/18 at 20:30; Stop 12/11/18 at 20:31; Status DC Magnesium Hydroxide (Milk Of Magnesia) 2,400 mg PRN DAILY PRN PO CONSTIPATION; Start 12/11/18 at 20:15 Warfarin Sodium (Coumadin) 3 mg 1X WARF ONCE PO Last administered on 12/12/18at 15:44; Start 12/12/18 at 16:00; Stop 12/12/18 at 16:01; Status DC Active Scripts Active K-Tab (Potassium Chloride) 10 Meq Tablet.er 20 Meq PO BID 7 Days Reported Cardizem Cd (Diltiazem Hcl) 180 Mg Cap.er.24h 1 Cap PO DAILY Multivitamins (Multivitamin) 1 Each Tablet 1 Tab PO DAILY Calcium + Vitamin D Tablet (Calcium Carbonate/Vitamin D3) 1 Each Tablet 1 Each PO DAILY Miralax (Polyethylene Glycol 3350) 17 Gm Powd.pack 1 Packet PO DAILY Ranitidine Hcl 150 Mg Tablet 1 Tab PO BID Dicyclomine Hcl 10 Mg Capsule 10 Mg PO QID Cyclobenzaprine Hcl 10 Mg Tablet 1 Tab PO TID Protonix (Pantoprazole Sodium) 20 Mg Tablet.dr 2 Tab PO DAILY Albuterol Sulfate Conc Neb Soln (Albuterol Sulfate) 2.5 Mg/0.5 Ml Vial.neb 2.5 Mg IH QID [Pro Air] 6XDAY Spiriva (Tiotropium [place]) 18 Mcg Cap.w.dev 18 Mcg IH DAILY [Synbicort] BID [Poltethylene Glycol] CECILY [Poltethylene] Mesalamine 1 Gm Powder 1 Gm MC TID [Flexer] DAILY Hydrocodon-Acetaminophen 5-500 (Hydrocodone Bit/Acetaminophen) 1 Each Tablet 1 Each PO BID Fluticasone Propionate Nasal [place] (Fluticasone Propionate) 16 Gm [place].susp 16 Gm NS DAILY Losartan-Hctz 100-25 Mg Tab (Losartan/Hydrochlorothiazide) 1 Each Tablet 1 Each PO DAILY Temazepam 30 Mg Capsule 30 Mg PO HS Vital Signs Vital Signs Date Time Temp Pulse Resp B/P (MAP) Pulse Ox O2 Delivery O2 Flow Rate FiO2 12/13/18 08:29 Nasal Cannula 3.0 12/13/18 08:27 129 159/76 12/13/18 07:33 98 12/13/18 07:00 98.0 22 98.0 Labs Laboratory Tests Test 3/4/19 04:30 12/13/18 03:50 Prothrombin Time 20.7 SEC (11.7-14.0) 20.7 SEC (11.7-14.0) Prothromb Time International Ratio 1.8 (0.8-1.1) 1.8 (0.8-1.1) Laboratory Tests Test 12/13/18 03:50 Prothrombin Time 20.7 SEC (11.7-14.0) Prothromb Time International Ratio 1.8 (0.8-1.1) Allergies Allergies Coded Allergies Type Severity Reaction Last Updated Verified tramadol Allergy Intermediate 12/08/18 No codeine Adverse Reaction Intermediate Nausea 05/12/17 Yes Disposition/Orders: D/C to Another Facility ([facility]) NAS ORDONEZ MD Dec 13, 2018 09:13
[2018-12-13 11:00] VITALS: BP 110/58
--- NOTE | 2018-12-13 11:06 | DISCH ---
DISCHARGE DISCHARGE INFORMATION: FINAL DIAGNOSIS Problems Medical Problems: (1) Subcapital fracture of left femur Status: Acute CONDITION ON DISCHARGE: Stable CODE STATUS: Code Status: Full DETENTION: SNF STAY <30 DAYS: Yes POST DISCHARGE ORDERS: ACTIVITY ORDERS: Activity as tolerated WEIGHT BEARING STATUS: As tolerated WOUND/INCISION CARE: Do not change dressing FOLLOW-UP: ADDITIONAL FOLLOW-UP: Dr. Webber in 2 weeks. [phone] TREATMENT/EQUIPMENT ORDERS: RESPIRATORY EQUIPMENT NEEDED: Oxygen Physical Therapy For: Evalulation/Treatment Occupational Therapy For: Evaluation/Treatment (Check INR daily until stable, goal 1.6-2.5. Length of treatment per Ortho) DISCHARGE MEDICATIONS: Home Meds Active Scripts Warfarin Sodium (COUMADIN) 10 Mg Tablet, 5 MG PO DAILY for anticoagulation for 30 Days, #15 TAB Prov:NAS ORDONEZ MD 12/12/18 Potassium Chloride (K-TAB) 10 Meq Tablet.er, 20 MEQ PO BID for 7 Days, TAB.SR Prov:REESE BARRETO MD 09/13/16 Reported Medications Diltiazem Hcl (CARDIZEM CD) 180 Mg Cap.er.24h, 1 CAP PO DAILY for HTN , #90 CAP 1 Refill 12/08/18 Multivitamin (MULTIVITAMINS) 1 Each Tablet, 1 TAB PO DAILY for supplemental , # 30 TAB 5 Refills 12/08/18 Calcium Carbonate/Vitamin D3 (CALCIUM + VITAMIN D TABLET) 1 Each Tablet, 1 EACH PO DAILY for supplement , TAB 12/08/18 Polyethylene Glycol 3350 (MIRALAX) 17 Gm Powd.pack, 1 PACKET PO DAILY for constipation, #30 PACKET 3 Refills 12/08/18 Ranitidine Hcl (RANITIDINE HCL) 150 Mg Tablet, 1 TAB PO BID for GERD, #180 TAB 3 Refills 12/08/18 Dicyclomine Hcl (DICYCLOMINE HCL) 10 Mg Capsule, 10 MG PO QID for unknown, CAP 12/08/18 Pantoprazole Sodium (PROTONIX) 20 Mg Tablet.dr, 2 TAB PO DAILY for GERD, #30 TAB 12/08/18 Albuterol Sulfate (ALBUTEROL SULFATE CONC NEB SOLN) 2.5 Mg/0.5 Ml Vial.neb, 2.5 MG IH QID 09/22/13 [Pro Air] No Conflict Check, 6XDAY 12/13/13 Tiotropium [place] (SPIRIVA) 18 Mcg Cap.w.dev, 18 MCG IH DAILY 09/22/13 [Synbicort] No Conflict Check, BID 09/22/13 [Poltethylene Glycol] No Conflict Check, CECILY 09/22/13 [Poltethylene] No Conflict Check 09/22/13 Mesalamine (MESALAMINE) 1 Gm Powder, 1 GM MC TID 09/22/13 [Flexer] No Conflict Check, DAILY 09/22/13 Fluticasone Propionate (FLUTICASONE PROPIONATE NASAL SPRAY) 16 Gm [place].susp, 16 GM NS DAILY 09/22/13 Losartan/Hydrochlorothiazide (LOSARTAN-HCTZ 100-25 MG TAB) 1 Each Tablet, 1 EACH PO DAILY 09/22/13 Temazepam (TEMAZEPAM) 30 Mg Capsule, 30 MG PO HS 09/22/13 Discontinued Reported Medications Cyclobenzaprine Hcl (CYCLOBENZAPRINE HCL) 10 Mg Tablet, 1 TAB PO TID for muscle spasms, #90 TAB 12/08/18 Hydrocodone Bit/Acetaminophen (HYDROCODON-ACETAMINOPHEN 5-500) 1 Each Tablet, 1 EACH PO BID 09/22/13 NAS ORDONEZ MD Dec 13, 2018 11:06
--- NOTE | 2018-12-13 11:15 | NUR ---
Message left for Dr. Webber Re: necessity for pain med rx per Dr. Isabel and inquiring of length of time pt is to be on Coumadin. Spoke with LUIS EDUARDO Torrez in PACU.
--- NOTE | 2018-12-13 13:16 | NUR ---
SW following. Insurance has approved for pt to go to [facility]. Discharge paperwork faxed. 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 Pt choice and rights letter signed and placed on chart. RN notified.
--- NOTE | 2018-12-13 15:13 | NUR ---
Pt. transferred to [place] via per transportation service. L hip CDI.
== END 2018-12-13 15:15 | DRG 481 ==
LOC: ER 00:30 → 4 NORTH 03:16
PROVIDERS: ADMIT Family Medicine; ATTEND Family Medicine
PROC: 0QS734Z Reposition Left Upper Femur with Internal Fixation Device, Percutaneous Approach (ICD-10-PCS; principal; 2018-12-07 16:00)
DX: S72.012A Unspecified intracapsular fracture of left femur, initial encounter for closed fracture (principal); S42.255A Nondisplaced fracture of greater tuberosity of left humerus, initial encounter for closed fracture; J44.9 Chronic obstructive pulmonary disease, unspecified; I10 Essential (primary) hypertension; K21.9 Gastro-esophageal reflux disease without esophagitis; M81.0 Age-related osteoporosis without current pathological fracture; W01.0XXA Fall on same level from slipping, tripping and stumbling without subsequent striking against object, initial encounter; K57.90 Diverticulosis of intestine, part unspecified, without perforation or abscess without bleeding; M19.90 Unspecified osteoarthritis, unspecified site; Y93.89 Activity, other specified; Y92.098 Other place in other non-institutional residence as the place of occurrence of the external cause; Y99.8 Other external cause status; Z87.81 Personal history of (healed) traumatic fracture; Z87.891 Personal history of nicotine dependence; Z90.49 Acquired absence of other specified parts of digestive tract; Z90.710 Acquired absence of both cervix and uterus; Z85.118 Personal history of other malignant neoplasm of bronchus and lung; Z90.721 Acquired absence of ovaries, unilateral; Z88.8 Allergy status to other drugs, medicaments and biological substances
CPT/HCPCS: 36415; 71045; 71046; 72192; 73030; 73221; 73502; 76000; 80053; 81001; 85014; 85018; 85025; 85610; 87641; 93005; 94640; 94760; 96361; 96374; 96375; A7015; C1887; J0690; J1100; J1170; J2001; J2405; J2704; J3010; J3490; J7030; J7613; J7620; J7626; 97110; 97116; 97530; 97535; 99285-25